=== PATIENT | male | born 1970 | race African-American/Black ===

== ENCOUNTER 2019-02-21 06:46 | Emergency (ER) | payer SELFPAY ==
[2019-02-21] MEDS ORDERED: DIPHENHYDRAMINE HCL 50 MG/ML VIAL IV ONE (10:35)
[2019-02-21] MEDS ORDERED: DEXAMETHASONE SOD PHOS INJ 10 MG/1 ML VIAL IV ONE (10:35)
[2019-02-21] MEDS ORDERED: PROCHLORPERAZINE EDISYLATE INJ 10 MG/2 ML VIAL IV ONE ×3 (10:35→13:20)
[2019-02-21] MEDS ORDERED: NORMAL SALINE 1000 ML 1,000 ML IV ONE (10:35)
--- NOTE | 2019-02-21 10:38 | ER Document Report ---
ED Medical Screen (RME) - General Chief Complaint: Headache >24 hrs old Stated Complaint: MIGRANE/BLOOD PRESSURE ISSUES Time Seen by Provider: 02/21/19 10:32 Mode of Arrival: Ambulatory Information source: Patient Notes: Patient presents complaining of headache pain that started gradually 2 weeks ago. Patient states headache pain worsened yesterday which prompted his visit today. Patient reports light sensitivity and phonophobia. Patient denies any fever nausea or vomiting. Patient denies any head injury. I have greeted and performed a rapid initial assessment of this patient. A co mprehensive ED assessment and evaluation of the patient, analysis of test results and completion of the medical decision making process will be conducted by additional ED providers. TRAVEL OUTSIDE OF THE [place] IN LAST 30 DAYS: No - Related Data Allergies/Adverse Reactions: No Known Allergies Allergy (Unverified 02/21/19 08:49) Physical Exam - Vital signs Vitals: Temp Pulse Resp BP Pulse Ox 98.6 F 73 16 136/79 H 97 02/21/19 07:01 02/21/19 07:01 02/21/19 07:01 02/21/19 07:01 02/21/19 07:01 - General Notes: No meningismus - Neurological Cognition: Normal [place] Coma Scale Eye Opening: Spontaneous [place] Coma Scale Verbal: Oriented Nehal Coma Scale Motor: Obeys Commands [place] Coma Scale Total: 15 Course - Vital Signs Vital signs: Temp Pulse Resp BP Pulse Ox 98.5 F 66 14 116/75 98 02/21/19 10:22 02/21/19 10:22 02/21/19 10:22 02/21/19 10:22 02/21/19 10:22
--- NOTE | 2019-02-21 11:08 | RADIOLOGY REPORT (SQ) ---
EXAM DESCRIPTION: CT HEAD WITHOUT COMPLETED DATE/TIME: 02/21/2019 10:53 am REASON FOR STUDY: PURVIS COMPARISON: None. TECHNIQUE: Axial images acquired through the brain without intravenous contrast. Images reviewed wi th bone, brain and subdural windows. Additional sagittal and coronal reconstructions were generated. Images stored on PACS. All CT scanners at this facility use dose modulation, iterative reconstruction, and/or weight based d osing when appropriate to reduce radiation dose to as low as reasonably achievable (ALARA). [facility]: Dose Right [facility]: CareDose [facility]: Dose Right [facility]: Teradose 4D [facility]: [email or web address] RADIATION DOSE: CT Rad equipment meets quality standard of care and radiation dose reduction techniq ues were employed. CTDIvol: 53.2 mGy. DLP: 1044 mGy-cm. mGy. LIMITATIONS: None. FINDINGS: VENTRICLES: Normal size and contour. CEREBRUM: No masses. No hemorrhage. No midline shift. No evidence for acute infarction. Normal gra y/white matter differentiation. No areas of low density in the white matter. CEREBELLUM: No masses. No hemorrhage. No alteration of density. No evidence for acute infarction. EXTRAAXIAL SPACES: No fluid collections. No masses. ORBITS AND GLOBE: No intra- or extraconal masses. Normal contour of globe without masses. CALVARIUM: No fracture. PARANASAL SINUSES: No fluid or mucosal thickening. SOFT TISSUES: No mass or hematoma. OTHER: No other significant finding. IMPRESSION: No acute intracranial pathology. EVIDENCE OF ACUTE STROKE: NO. COMMENT: Quality ID # [id number]: Final reports with documentation of one or more dose reduction techniques (e.g., Automated exposure control, adjustment of the mA and/or kV according to patient size, use of iterative reconstruction technique) TECHNICAL DOCUMENTATION: JOB ID: [id number] [employer]- All Rights Reserved Reading location - IP/workstation name: [email or web address]
--- NOTE | 2019-02-21 11:39 | ER Document Report ---
ED General - General Chief Complaint: Headache >24 hrs old Stated Complaint: MIGRANE/BLOOD PRESSURE ISSUES Time Seen by Provider: 02/21/19 10:32 Mode of Arrival: Ambulatory TRAVEL OUTSIDE OF THE [place] IN LAST 30 DAYS: No - Related Data Allergies/Adverse Reactions: No Known Allergies Allergy (Unverified 02/21/19 08:49) Past Medical History - General Information source: Patient - Social History Smoking Status: Current Every Day Smoker Family History: Reviewed & Not Pertinent Patient has suicidal ideation: No Patient has homicidal ideation: No Physical Exam - Vital signs Vitals: Temp Pulse Resp BP Pulse Ox 98.6 F 73 16 136/79 H 97 02/21/19 07:01 02/21/19 07:01 02/21/19 07:01 02/21/19 07:01 02/21/19 07:01 - Notes Notes: Patient presents emergency department complaint of a headache this been going on for the past 2 weeks. The headache is located in both eyes. Associated with little bit of blurry vision a bit of photophobia. He says the headache came on gradually got progressively worse. Is not a thunderclap headache not the worst headache he has ever had no relief with [id number] medications. He has no fevers nausea or vomiting with this numbness or weakness in extremities. Said he had frequent headaches as a kid room does not remember headaches like in the past There is medical history is unremarkable. Socially she does smoke but does not drink. Family history is noncontributory PHYSICIAN EXAM -vital signs are noted triage note and note from triage reviewed GENERAL: Well-appearing, well-nourished and in _mild distress from pain HEAD: Atraumatic, normocephalic. EYES: Pupils equal round and reactive to light, extraocular movements intact, there is no nystagmus there is no real photophobia lights in the room are off sclera anicteric, conjunctiva are normal. ENT: nares patent, oropharynx clear without exudates. Moist mucous membranes. Face is nontender nontender NECK: supple without lymphadenopathy no meningeal signs LUNGS: Breath sounds clear to auscultation bilaterally and equal. No wheezes rales or rhonchi. HEART: Regular rate and rhythm without murmurs ABDOMEN: Soft, nontender, normoactive bowel sounds. EXTREMITIES: No deformity, no edema. NEUROLOGICAL: Alert and oriented x4. Cranial nerves he has symmetrical smile facies and shoulder shrug. His motor strength is 5/5 bilaterally in the upper and lower extremities. Toes downgoing. Sensation is intact to light touch is a negative Romberg and normal gait PSYCH: Normal mood, normal affect. SKIN: Warm, Dry, normal turgor, no rashes or lesions noted. BACK-nontender in the midline Differential diagnosis includes migraine headache headache Course - Re-evaluation Re-evalutation: 02/21/19 16:31 ED patient remained stable he was given medications from triage. On repeat exam he still having a moderate headache and was given additional dose of medications. On repeat exam she has a headache is almost completely resolved. He is feeling better and looks better. And was able to tolerate the lights on in the room Medical decision making patient presents with headache for 2 weeks. She had a normal neurological exam. CT is negative presentation is not consistent with subarachnoid hemorrhage or meningitis he is feeling better can be discharged home. Dictation was done using voice recognition software. There may be some grammatical errors which are unintentional I discussed results of laboratory findings and diagnostic test with patient/family. The treatment plan was explained and I reviewed the discharge instructions with them. Questions were answered. The patient/family verbalizes understanding - Vital Signs Vital signs: Temp Pulse Resp BP Pulse Ox 98.5 F 66 14 110/74 97 02/21/19 10:22 02/21/19 10:22 02/21/19 10:22 02/21/19 16:01 02/21/19 16:01 - Diagnostic Test Radiology reviewed: Reports reviewed Discharge - Discharge Clinical Impression: Headache Qualifiers: Headache type: unspecified Headache chronicity pattern: unspecified pattern Condition: Good Disposition: HOME, SELF-CARE Additional Instructions: Headache The physician does not feel that the headache you are experiencing has a serious underlying cause. Most headaches are due to emotional stress, with resultant muscle tension (tension headache). Occasionally, headaches are secondary to changes in the blood vessels of the scalp (vascular headache and migraine headache). Sometimes, a headache is the first symptom of another developing illness, such as a viral infection. You have no evidence of stroke, bleeding, meningitis, or other serious cause of your headache. The treatment of headaches varies with the severity and cause of the pain. Not all headaches need pain shots. In fact, there is evidence that using narcotics for headaches may make them worse in the long run. The physician will determine the therapy that's in your best interest. If you develop a fever, if the headache is different from any you've previously experienced, or if the headache progressively worsens, then call your physician at once or go to the emergency room. Return if you get worse or unable to follow-up with your family doctor Please review the discharge instructions. They will tell you about your illness/injury, the normal course and symptoms you need to return to the emergency department for Follow-up in the clinic in 2 to 3 days if not better Take 1 Benadryl with the Compazine Prescriptions: Prochlorperazine Maleate [Compazine 10 mg Tablet] 10 mg PO ASDIR PRN #6 tablet PRN Reason:
[2019-02-21] MEDS ORDERED: KETOROLAC TROMETHAMINE INJ/PF 30 MG/1 ML SDV IV ONE (13:21)
[2019-02-21 16:54] VITALS: BP 122/79
== END 2019-02-21 16:52 | disposition home or self-care (01) ==
LOC: ER 06:46
DX: R51 Headache (principal); F17.200 Nicotine dependence, unspecified, uncomplicated; H53.8 Other visual disturbances
CPT/HCPCS: 96376; 99283; 96361; 96374; 96375; 70450; J1200; J1885; J0780; J7030; J1100

== ENCOUNTER 2020-02-23 21:07 | Observation (INO) | payer SELFPAY ==
--- NOTE | 2020-02-23 22:05 | ER Document Report ---
ED Medical Screen (RME) - General Chief Complaint: Chest Pain Stated Complaint: CHEST PAIN Time Seen by Provider: 02/23/20 21:59 TRAVEL OUTSIDE OF THE [place] IN LAST 30 DAYS: No - HPI Notes: Patient is a 49-year-old male with history of 3 MIs who presents with right- sided chest pain that began 3 days ago. Patient states the pain has been constant and radiates to his right arm. He denies any recent injury or fall. Patient is not currently on any blood thinners. - Related Data Allergies/Adverse Reactions: No Known Allergies Allergy (Unverified 02/21/19 08:49) Physical Exam - Vital signs Vitals: Temp Pulse Resp BP Pulse Ox 97.7 F 67 18 119/74 93 02/23/20 21:26 02/23/20 21:26 02/23/20 21:26 02/23/20 21:26 02/23/20 21:26 - General In distress: Mild - Respiratory Respiratory status: No respiratory distress Chest status: Tender Breath sounds: Normal - Cardiovascular Rhythm: Regular Heart sounds: Normal auscultation Course - Re-evaluation Re-evalutation: I have greeted and performed a rapid initial assessment of this patient. A comprehensive ED assessment and evaluation of the patient, analysis of test results and completion of medical decision making process will be conducted by an additional ED providers. - Vital Signs Vital signs: Temp Pulse Resp BP Pulse Ox 97.7 F 67 18 119/74 93 02/23/20 21:26 02/23/20 21:26 02/23/20 21:26 02/23/20 21:26 02/23/20 21:26
--- NOTE | 2020-02-23 22:16 | EKG REPORT ---
SEVERITY:- NORMAL ECG - SINUS RHYTHM ST ELEV, PROBABLE NORMAL EARLY REPOL PATTERN : Confirmed by: Amarilis Smalls MD 23-Feb-2020 22:16:28
[2020-02-23 22:48] LABS: ABSOLUTE BASOPHILS # (AUTO) 0.1 10^3/uL (0.0-0.2); ABSOLUTE LYMPHOCYTES (AUTO) 3.1 10^3/uL (0.5-4.7); ABSOLUTE MONOCYTES (AUTO) 0.5 10^3/uL (0.1-1.4); TOTAL CELLS COUNTED % (AUTO) 100 %
[2020-02-23 22:54] LABS: ABSOLUTE EOSINOPHILS # (AUTO) 0.3 10^3/uL (0.0-0.6); ABSOLUTE NEUT (AUTO) 2.7 10^3/uL (1.7-8.2); BASOPHILS % (AUTO) 1.5 % (0-2); EOSINOPHILS % (AUTO) 3.9 % (0-6); HEMATOCRIT 47.7 % (37.9-51.0); LYMPHOCYTES % (AUTO) 46.5 % (13-45); MEAN CORPUSCULAR HEMOGLOBIN 30.3 pg (27.0-33.4); MEAN CORPUSCULAR HGB CONC 33.6 g/dL (32.0-36.0); MEAN CORPUSCULAR VOLUME 90 fl (80-97); MONOCYTES % (AUTO) 7.4 % (3-13); PLATELET COUNT 316 10^3/uL (150-450); RED BLOOD COUNT 5.28 10^6/uL (4.35-5.55); RED CELL DISTRIBUTION WIDTH 14.6 % (11.5-14.0); SEGMENTED NEUTROPHILS % (AUTO) 40.7 % (42-78); WHITE BLOOD COUNT 6.6 10^3/uL (4.0-10.5)
[2020-02-23 23:06] LABS: ALBUMIN 4.6 g/dL (3.5-5.0); ALKALINE PHOSPHATASE 64 U/L (38-126); ANION GAP 14 (5-19); ASPARTATE AMINO TRANSFERASE 27 U/L (17-59); BILIRUBIN,DIRECT 0.2 mg/dL (0.0-0.4); BILIRUBIN,TOTAL 0.6 mg/dL (0.2-1.3); BLOOD UREA NITROGEN 13 mg/dL (7-20); CARBON DIOXIDE 22 mmol/L (22-30); CHLORIDE 105 mmol/L (98-107); GLUCOSE 103 mg/dL (75-110); POTASSIUM 4.2 mmol/L (3.6-5.0); TOTAL PROTEIN 7.6 g/dL (6.3-8.2)
--- NOTE | 2020-02-23 23:14 | RADIOLOGY REPORT (SQ) ---
EXAM DESCRIPTION: CHEST SINGLE VIEW 02/23/2020 10:03 PM [employer] CLINICAL HISTORY: 49 years Male, chest pain; ; COMPARISON: None. FINDINGS: Single view is obtained. Cardiac and mediastinal contours are normal. Lungs are clear. No pleural effusion or pneumothorax. A small osteochondroma may emanate from the dorsal aspect of the distal right clavicle. IMPRESSION: No acute disease.
[2020-02-24] MEDS ORDERED: ASPIRIN 81 MG TABLET, CHEWABLE ONE (03:49)
[2020-02-24] MEDS ORDERED: MORPHINE SULFATE 10 MG/ML INJ ONE (03:49)
--- NOTE | 2020-02-24 05:08 | ER Document Report ---
ED General - General Chief Complaint: Chest Wall Pain Stated Complaint: CHEST PAIN Time Seen by Provider: 02/23/20 21:59 Notes: 49-year-old male with CAD with several prior MIs presents with approximately 2 days of constant retrosternal and right-sided chest pain radiating to right arm similar to prior anginal pain without alleviating factors associated with feeling more tired than usual for the past 2 days. Patient denies recent cardiac work-up, PE history, pleuritic chest pain, exertional chest pain, lower extremity edema, PE risk factors, cough, fever, trauma, back pain, abdominal pain, drug use, myalgia TRAVEL OUTSIDE OF THE [place] IN LAST 30 DAYS: No - Related Data Allergies/Adverse Reactions: No Known Allergies Allergy (Unverified 02/21/19 08:49) Past Medical History - General Information source: Patient, Relative - Social History Smoking Status: Unknown if Ever Smoked Family History: Reviewed & Not Pertinent Review of Systems - Review of Systems Notes: REVIEW OF SYSTEMS: CONSTITUTIONAL : Denies fever, chills, or sweats. EENT: Denies recent cold/sinus symptoms, denies throat pain CARDIOVASCULAR: + chest pain, -ADE RESPIRATORY: Denies cough, denies shortness of breath. GASTROINTESTINAL: Denies abdominal pain, nausea/vomiting. GENITOURINARY: Denies difficulty urinating, painful urination. MUSCULOSKELETAL: Denies neck pain, back pain. SKIN: Denies rash or skin lesions. HEMATOLOGIC : Denies easy bruising or bleeding. LYMPHATIC: Denies swollen, enlarged glands. NEUROLOGICAL: Denies headache, denies change in gait. PSYCHIATRIC: Denies anxiety or stress or depression. Physical Exam - Vital signs Vitals: Temp Pulse Resp BP Pulse Ox 97.7 F 67 18 119/74 93 02/23/20 21:26 02/23/20 21:26 02/23/20 21:26 02/23/20 21:26 02/23/20 21:26 - Notes Notes: PHYSICAL EXAMINATION: GENERAL: Well-appearing, well-nourished and in no acute distress. HEAD: Atraumatic, normocephalic. EYES: Pupils equal round and appropriate constriction, sclera anicteric, conjunctiva are normal. ENT: nares patent, moist mucous membranes. NECK: Normal range of motion, supple without lymphadenopathy, no JVD LUNGS/CHEST: Normal respiratory rate and effort, speaking in full sentences, no accessory muscle use, normal chest excursion, mild discomfort on palpation of chest diffusely on right side with normal inspection HEART: Regular rate, no JVD, no lower extremity edema ABDOMEN: Soft, nontender, no guarding, no masses EXTREMITIES: Normal range of motion, no pitting or edema. No cyanosis. NEUROLOGICAL: Awake, alert, conversing appropriately, moves all extremities spontaneously. PSYCH: Normal mood, normal affect. SKIN: Warm, Dry, normal turgor, no rashes or lesions noted. Course - Re-evaluation Re-evalutation: 02/24/20 05:05 Patient with chest pain without associated symptoms with concerning CAD history similar to prior anginal pain, but also reproducible and has been constant for 2 days with 2 negative troponins. Patient low risk for PE and D-dimer negative which is sufficient to rule out PE in this patient with low pretest probability. EKG with concave and diffuse mild ST abnormalities without any reciprocal changes which are stable on 2 repeat EKGs likely early repole possibly representing pericarditis, unlikely acute TX as patient has had no dynamic changes and 2 - troponins. Given patient's heart score and ACS risk patient appropriate for observation for cardiology eval and possible stress. Patient's pain improved with morphine. Patient has been stable during ED observation.. Discussed patient with Dr. Huddleston who has accepted patient to observation. Given that patient also presents with generalized fatigue ordered Covid test. Presentation not consistent with aortic dissection, will defer to hospitalist to reevaluate need for definitive testing for this diagnosis if clinical picture should change, but not indicated at this time. The patient was evaluated during the global COVID-19 pandemic and that diagnosis was suspected/considered upon their initial presentation. Their evaluation, treatment and testing was consistent with current guidelines for patients who present with complaints or symptoms that may be related to COVID-19. - Vital Signs Vital signs: Temp Pulse Resp BP Pulse Ox 97.7 F 73 18 125/65 99 02/23/20 21:26 02/23/20 23:33 02/23/20 21:26 02/23/20 23:33 02/23/20 23:33 - Laboratory Results Result Diagrams: 02/23/20 22:39 02/23/20 22:39 Laboratory Results Interpreted: 02/23/20 22:39 RDW 14.6 H Lymph % (Auto) 46.5 H Seg Neutrophils % 40.7 L Critical Laboratory Results Reviewed: No Critical Results - Radiology Results Critical Radiology Results Reviewed: No Critical Results - EKG Interpretation by Me Additional EKG results interpreted by me: 02/24/20 05:09 Initial EKG: Sinus rhythm, no significant ST depressions, concave ST elevations in precordial leads likely early repol, no significant T wave abnormalities Second EKG: Sinus rhythm, no significant ST depressions, concave ST elevations in precordial leads likely early repol, no significant T wave abnormalities, no significant changes from prior EKG Third EKG: Sinus rhythm, no significant ST depressions, concave ST elevations in precordial leads likely early repol, no significant T wave abnormalities, no significant changes from prior EKG Discharge - Discharge Clinical Impression: Chest pain Qualifiers: Chest pain type: unspecified Qualified Code(s): R07.9 - Chest pain, unspecified Disposition: ADMITTED OBSERVATION Admitting Provider: [facility] Admitted: Telemetry
[2020-02-24] MEDS ORDERED: ACETAMINOPHEN 325 MG TABLET PO PRN (05:25)
--- NOTE | 2020-02-24 06:54 | PDOC H&P ---
History of Present Illness Admission Date/PCP: 02/24/20 05:19 Patient complains of: Chest pain History of Present Illness: SAYRA LOYOLA is a 49 year old male The patient presented with chest pain lasting for about 3 days now. He has some questionable history of heart disease. 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 Further questioning him he said he did not have cardiac catheterization and he does not have any cardiac stent. He said he has an enlarged heart. It is somewhat unclear what happened to him. 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 Sunday, on 19 February he developed right-sided chest pain after working. Moving around and lifting his arm made the pain worse. He had some intermittent left-sided chest pain as well. He became very weak. The chest pain was persistent. He had no shortness of breath. Eventually he came to the emergency department last night. He was given intravenous morphine for pain. When I arrived to see him he was sleeping. He woke up easily. He was complaining about right sided pressure type chest pain. Pain is radiating to the right shoulder. Moving the right shoulder or the right arm did not make any difference for the pain. The pain was persistent but after morphine it was a lot better. The patient did not appear to be in any distress. Past Medical History Cardiac Medical History: Reports: Other - He is stating he had 3 heart attacks but I am not quite sure. Pulmonary Medical History: Reports: None EENT Medical History: Reports: None Neurological Medical History: Reports: None Endocrine Medical History: Reports: None Renal/ Medical History: Reports: None GI Medical History: Reports: None Skin Medical History: Reports: None Hematology: Reports: None Infectious Medical History: Reports: None Past Surgical History Past Surgical History: Reports: None Social History Information Source: Patient Lives with: Family Smoking Status: Unknown if Ever Smoked Family History Family History: Reviewed & Not Pertinent Parental Family History Reviewed: Yes Children Family History Reviewed: Yes Sibling(s) Family History Reviewed.: Yes Medication/Allergy Home Medications: Prochlorperazine Maleate [Compazine 10 mg Tablet] 10 mg PO ASDIR PRN #6 tablet 02/21/19 Allergies/Adverse Reactions: No Known Allergies Allergy (Unverified 02/21/19 08:49) Review of Systems Constitutional: PRESENT: weakness Eyes: ABSENT: visual disturbances Ears: ABSENT: hearing changes Cardiovascular: PRESENT: chest pain Respiratory: ABSENT: cough, hemoptysis Gastrointestinal: ABSENT: abdominal pain, constipation, diarrhea, hematemesis, hematochezia, nausea, vomiting Integumentary: ABSENT: rash, wounds Neurological: ABSENT: abnormal gait, abnormal speech, confusion, dizziness, focal weakness, syncope Psychiatric: ABSENT: anxiety, depression, homidical ideation, suicidal ideation Hematologic/Lymphatic: ABSENT: easy bleeding, easy bruising Physical Exam Vital Signs: Temp Pulse Resp BP Pulse Ox 98.4 F 73 12 120/74 98 02/24/20 06:00 02/23/20 23:33 02/24/20 06:00 02/24/20 06:00 02/24/20 06:00 Intake & Output 02/22/20 02/23/20 02/24/20 06:59 06:59 06:59 Weight 81.647 kg General appearance: PRESENT: no acute distress Head exam: PRESENT: atraumatic, normocephalic Eye exam: PRESENT: conjunctiva pink, EOMI, PERRLA. ABSENT: scleral icterus Ear exam: PRESENT: normal external ear exam Neck exam: ABSENT: carotid bruit, JVD, lymphadenopathy, thyromegaly Respiratory exam: PRESENT: clear to auscultation jackeline. ABSENT: rales, rhonchi, wheezes Cardiovascular exam: PRESENT: RRR. ABSENT: diastolic murmur, rubs, systolic murmur Pulses: PRESENT: normal dorsalis pedis pul Vascular exam: PRESENT: normal capillary refill GI/Abdominal exam: PRESENT: normal bowel sounds, soft. ABSENT: distended, guarding, mass, organolmegaly, rebound, tenderness Extremities exam: PRESENT: full ROM. ABSENT: calf tenderness, clubbing, pedal edema Musculoskeletal exam: PRESENT: ambulatory Neurological exam: PRESENT: alert, awake, oriented to person, oriented to place, oriented to time, oriented to situation, CN II-XII grossly intact. ABSENT: motor sensory deficit Skin exam: ABSENT: rash Results Laboratory Results: 02/23/20 22:39 02/23/20 22:39 02/23/20 02/23/20 22:39 22:39 WBC 6.6 RBC 5.28 Hgb 16.0 Hct 47.7 MCV 90 MCH 30.3 MCHC 33.6 RDW 14.6 H Plt Count 316 Seg Neutrophils % 40.7 L Sodium 141.3 Potassium 4.2 Chloride 105 Carbon Dioxide 22 Anion Gap 14 BUN 13 Creatinine 0.84 Est GFR ( Amer) > 60 Glucose 103 Calcium 10.0 Magnesium 2.2 Total Bilirubin 0.6 AST 27 Alkaline Phosphatase 64 Total Protein 7.6 Albumin 4.6 02/23/20 02/24/20 22:39 02:25 Troponin I < 0.012 < 0.012 EKG Comments: Sinus rhythm, left ventricular hypertrophy, ST elevation V3 to V6 consistent with early repolarization. Impressions: Chest X-Ray 02/23/20 22:03 IMPRESSION: No acute disease. Assessment and Plan - Diagnosis (1) Chest pain Qualifiers: Chest pain type: unspecified Qualified Code(s): R07.9 - Chest pain, unspecified Is this a current diagnosis for this admission?: Yes Plan: The chest pain is mainly right-sided, he may had some left-sided component. The chest pain is persistent now for about 3 days. He has some questionable cardiac history. The way he describes the events myocardial infarction in the past seems to be less likely. He has left ventricular hypertrophy on EKG. Some form of cardiomyopathy cannot be excluded. He does not have any sign of ongoing cardiac ischemia. The patient is going to be placed in observation. engine monitor. Repeat cardiac enzymes. Echocardiogram. If there is any suspicion for heart disease cardiology consultation will be requested. The patient is ambulatory, expected hospital stay is short, DVT prophylaxis is not indicated. I started him on 81 mg aspirin. - Plan Summary Summary: The patient was placed in observation because of chest pain. Has some questionable cardiac history. He has abnormal EKG but no sign of ongoing cardiac ischemia. - Time Time Spent with patient: 25-34 minutes Medications reviewed and adjusted accordingly: Yes Anticipated Discharge Disposition: Home, Self Care Anticipated Discharge Timeframe: within 24 hours
[2020-02-24 07:01] LABS: CHOLESTEROL 174.91 mg/dL (0-200); TRIGLYCERIDES 112 mg/dL (<150)
[2020-02-24 07:12] LABS: DIRECT LDL 79 mg/dL (<100)
[2020-02-24] MEDS ORDERED: ASPIRIN 81 MG TABLET, CHEWABLE PO SCH (10:00)
[2020-02-24 13:41] VITALS: BP 116/73
--- NOTE | 2020-02-24 14:16 | EKG REPORT ---
SEVERITY:- ABNORMAL ECG - SINUS RHYTHM LEFT VENTRICULAR HYPERTROPHY ST ELEV, PROBABLE NORMAL EARLY REPOL PATTERN : Confirmed by: Amarilis Smalls MD 24-Feb-2020 14:15:33
[2020-02-24] MEDS ORDERED: DIAZEPAM 2 MG TABLET PO ONE (14:30)
[2020-02-24] MEDS ORDERED: KETOROLAC TROMETHAMINE INJ/PF 30 MG/1 ML SDV IV ONE (14:30)
--- NOTE | 2020-02-24 17:33 | XCELERA REPORT ---
[address] [address] Transthoracic Echocardiogram Report Name: SAYRA LOYOLA Age: 49 yrs Gender: Male : 1970 Patient Status: Inpatient Patient Location: [address] [place], [place] [id number] Study Date: 02/24/2020 11:25 AM History: Chest pain Height: 73 in Weight: 180 lb BSA: 2.1 m2 Procedure: A complete two-dimensional transthoracic echocardiogram was performed (2D, M-mode, spectral and color flow Doppler). The study was technically adequate with some images being suboptimal in quality. Reason For Study: chest pain Previous Evaluation: No previous studies were available. History: Chest pain. Ordering Physician: ARACELI ALEXANDRA Performed By: Mandy Ralph Interpretation Summary Left ventricular systolic function is normal. The Ejection Fraction estimate is 55-60% The right ventricle is normal in size and function. There is a trace amount of mitral regurgitation There is no aortic valve stenosis There is a trace amount of tricuspid regurgitation There is no pericardial effusion. MMode/2D Measurements & Calculations RVDd: 2.3 cm LVIDd: 5.0 cm FS: 30.3 % Ao root diam: 3.1 cm IVSd: 0.87 cm LVIDs: 3.5 cm EDV(Teich): 119.7 ml Ao root area: 7.5 cm2 LVPWd: 0.89 cm ESV(Teich): 51.1 ml EF(Teich): 57.3 % Doppler Measurements & Calculations MV E max maria isabel: MV dec slope: Ao V2 max: LV V1 max P.9 cm/sec 242.6 cm/sec2 120.4 cm/sec 5.0 mmHg MV A max maria isabel: MV dec time: 0.24 sec Ao max P.8 mmHgLV V1 max: 41.2 cm/sec 111.4 cm/sec MV E/A: 1.4 PA V2 max: PI end-d maria isabel: TR max maria isabel: 89.9 cm/sec 85.3 cm/sec 212.5 cm/sec PA max P.2 mmHg TR max P.1 mmHg Left Ventricle The left ventricle is normal in size. There is normal left ventricular wall thickness. Left ventricular systolic function is normal. The Ejection Fraction estimate is 55-60%. Doppler measurements suggest normal left ventricular diastolic function. The left ventricular wall motion is normal. Right Ventricle The right ventricle is normal in size and function. Atria The right atrium is normal. The left atrial size is normal. The interatrial septum is intact with no evidence for an atrial septal defect. There is no Doppler evidence for an interatrial shunt. Mitral Valve The mitral valve is grossly normal. There is no evidence of mitral valve prolapse. There is no mitral valve stenosis. There is a trace amount of mitral regurgitation. Aortic Valve The aortic valve is normal in structure and function. The aortic valve is trileaflet. The aortic valve opens well. There is no aortic valve stenosis. No aortic regurgitation is present. Tricuspid Valve The tricuspid valve is normal in structure and function. There is no tricuspid stenosis. There is a trace amount of tricuspid regurgitation. Doppler findings do not suggest pulmonary hypertension. Great Vessels The aortic root is normal size. The inferior vena cava appeared normal and decreased > 50% with respiration (RAP 5-10 mmHg). Effusions There is no pericardial effusion. : ARACELI ALEXANDRA Anil
--- NOTE | 2020-02-24 19:42 | PDOC DISCHARGE SUMMARY ---
Impression - Admit/DC Date/PCP Admission Date/Primary Care Provider: 02/24/20 05:19 Discharge Date: 02/24/20 - Discharge Diagnosis (1) Right shoulder pain Is this a current diagnosis for this admission?: Yes (2) Trapezius muscle spasm Is this a current diagnosis for this admission?: Yes (3) Chest pain Is this a current diagnosis for this admission?: Yes - Additional Information Resuscitation Status: Full Code Discharge Diet: Cardiac Discharge Activity: Activity As Tolerated, Balance Activity w/Rest, Slowly Increase Activity Referrals: [facility] [Outside] - 02/24/20 2:19 pm (OFFICE WILL CONTACT THE PATIENT WITH FOLLOW UP APPT) Prescriptions: Cyclobenzaprine HCl [Flexeril 10 mg Tablet] 10 mg PO TIDP PRN #15 tab PRN Reason: Muscle Spasms Tramadol HCl [Ultram 50 mg Tablet] 50 mg PO Q6HP PRN #12 tablet PRN Reason: Home Medications: Acetaminophen [Tylenol 325 mg Tablet] 650 mg PO Q4HP PRN tablet 02/24/20 Aspirin [Aspirin 81 mg Chewable Tablet] 81 mg PO DAILY tab.chew 02/24/20 Cyclobenzaprine HCl [Flexeril 10 mg Tablet] 10 mg PO TIDP PRN #15 tab 02/24/20 Tramadol HCl [Ultram 50 mg Tablet] 50 mg PO Q6HP PRN #12 tablet 02/24/20 History of Present Illiness History of Present Illness: Per H&P by Dr. Huddleston: SAYRA LOYOLA is a 49 year old male The patient presented with chest pain lasting for about 3 days now. He has some questionable history of heart disease. 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 Further questioning him he said he did not have cardiac catheterization and he does not have any cardiac stent. He said he has an enlarged heart. It is somewhat unclear what happened to him. He does not have a ski top trimmer and he does not have a primary care provider. 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 Sunday, on 19 February he developed right-sided chest pain after working. Moving around and lifting his arm made the pain worse. He had some intermittent left-sided chest pain as well. He became very weak. The chest pain was persistent. He had no shortness of breath. Eventually he came to the emergency department last night. He was given intravenous morphine for pain. When I arrived to see him he was sleeping. He woke up easily. He was complaining about right sided pressure type chest pain. Pain is radiating to the right shoulder. Moving the right shoulder or the right arm did not make any difference for the pain. The pain was persistent but after morphine it was a lot better. The patient did not appear to be in any distress. Hospital Course Hospital Course: The patient was admitted to the medical floor on continuous cardiac telemetry. He remained in normal sinus rhythm. EKG showed normal sinus rhythm without ST segment changes or other chest x-ray was benign. Echocardiogram revealed LVEF 55 to 60% with out diastolic dysfunction or other abnormal findings. Serial troponins were negative x3. D-dimer negative. Lipid panel and A1c normal. Upon further assessment, the patient's discomfort was reproducible through palpation and movement of his right upper extremity. He was noted to have paraspinal, trapezius, and sternocleidomastoid muscle spasms and tenderness; especially with rotation to the right and right lateral flexion. Patient was provided IV Toradol and p.o. Valium with improvement in his discomfort. He was discharged home with prescriptions for tramadol and Flexeril. In addition, he was advised to use heat, gentle stretching, and [id number] NSAIDs as needed for his discomfort. He was further instructed to return to the emergency department, as needed, for concerning symptoms. Physical Exam Vital Signs: Temp Pulse Resp BP Pulse Ox 97.7 F 58 L 17 116/73 100 02/24/20 13:17 02/24/20 14:00 02/24/20 13:17 02/24/20 12:33 02/24/20 13:17 Intake & Output 02/23/20 02/24/20 02/25/20 06:59 06:59 06:59 Intake Total 480 Balance 480 Weight 81.647 kg 75.6 kg General appearance: PRESENT: no acute distress, well-developed, well-nourished Head exam: PRESENT: atraumatic, normocephalic Eye exam: PRESENT: conjunctiva pink, EOMI, PERRLA. ABSENT: scleral icterus Mouth exam: PRESENT: moist, tongue midline Neck exam: PRESENT: tenderness - Right sternocleidomastoid and trapezius muscles with spasms noted.. ABSENT: carotid bruit, full ROM - Secondary to pain, JVD, lymphadenopathy, thyromegaly Respiratory exam: PRESENT: clear to auscultation jackeline, symmetrical, unlabored, other - Room air. ABSENT: rales, rhonchi, wheezes Cardiovascular exam: PRESENT: RRR, +S1, +S2. ABSENT: diastolic murmur, rubs, systolic murmur Pulses: PRESENT: normal dorsalis pedis pul Vascular exam: PRESENT: normal capillary refill Extremities exam: PRESENT: full ROM. ABSENT: calf tenderness, clubbing, pedal edema Musculoskeletal exam: PRESENT: ambulatory, other - Right-sided cervical and thoracic paraspinal muscle spasm and tenderness noted Neurological exam: PRESENT: alert, awake, oriented to person, oriented to place, oriented to time, oriented to situation, CN II-XII grossly intact. ABSENT: motor sensory deficit Psychiatric exam: PRESENT: appropriate affect, normal mood. ABSENT: homicidal ideation, suicidal ideation Skin exam: PRESENT: dry, intact, warm. ABSENT: cyanosis, rash Results Laboratory Results: WBC 6.6 10^3/uL (4.0-10.5) 02/23/20 22:39 RBC 5.28 10^6/uL (4.35-5.55) 02/23/20 22:39 Hgb 16.0 g/dL (13.5-17.0) 02/23/20 22:39 Hct 47.7 % (37.9-51.0) 02/23/20 22:39 MCV 90 fl (80-97) 02/23/20 22:39 MCH 30.3 pg (27.0-33.4) 02/23/20 22:39 MCHC 33.6 g/dL (32.0-36.0) 02/23/20 22:39 RDW 14.6 % (11.5-14.0) H 02/23/20 22:39 Plt Count 316 10^3/uL (150-450) 02/23/20 22:39 Lymph % (Auto) 46.5 % (13-45) H 02/23/20 22:39 [place] % (Auto) 7.4 % (3-13) 02/23/20 22:39 Eos % (Auto) 3.9 % (0-6) 02/23/20 22:39 Baso % (Auto) 1.5 % (0-2) 02/23/20 22:39 Absolute Neuts (auto) 2.7 10^3/uL (1.7-8.2) 02/23/20 22:39 Absolute Lymphs (auto) 3.1 10^3/uL (0.5-4.7) 02/23/20 22:39 Absolute Monos (auto) 0.5 10^3/uL (0.1-1.4) 02/23/20 22:39 Absolute Eos (auto) 0.3 10^3/uL (0.0-0.6) 02/23/20 22:39 Absolute Basos (auto) 0.1 10^3/uL (0.0-0.2) 02/23/20 22:39 Seg Neutrophils % 40.7 % (42-78) L 02/23/20 22:39 D-Dimer < 0.27 ug/mL (0.00-0.50) 02/23/20 22:39 Sodium 141.3 mmol/L (137-145) 02/23/20 22:39 Potassium 4.2 mmol/L (3.6-5.0) 02/23/20 22:39 Chloride 105 mmol/L (98-107) 02/23/20 22:39 Carbon Dioxide 22 mmol/L (22-30) 02/23/20 22:39 Anion Gap 14 (5-19) 02/23/20 22:39 BUN 13 mg/dL (7-20) 02/23/20 22:39 Creatinine 0.84 mg/dL (0.52-1.25) 02/23/20 22:39 Est GFR ( Amer) > 60 (>60) 02/23/20 22:39 Est GFR (MDRD) Non-Af > 60 (>60) 02/23/20 22:39 Glucose 103 mg/dL (75-110) 02/23/20 22:39 Hemoglobin A1c % 4.9 % (4.7-6.0) 02/24/20 06:26 Calcium 10.0 mg/dL (8.4-10.2) 02/23/20 22:39 Magnesium 2.2 mg/dL (1.6-2.3) 02/23/20 22:39 Total Bilirubin 0.6 mg/dL (0.2-1.3) 02/23/20 22:39 Direct Bilirubin 0.2 mg/dL (0.0-0.4) 02/23/20 22:39 Neonat Total Bilirubin Not Reportable 02/23/20 22:39 Neonat Direct Bilirubin Not Reportable 02/23/20 22:39 Neonat Indirect Bili Not Reportable 02/23/20 22:39 AST 27 U/L (17-59) 02/23/20 22:39 ALT 18 U/L (<50) 02/23/20 22:39 Alkaline Phosphatase 64 U/L (38-126) 02/23/20 22:39 Troponin I < 0.012 ng/mL 02/24/20 12:18 Total Protein 7.6 g/dL (6.3-8.2) 02/23/20 22:39 Albumin 4.6 g/dL (3.5-5.0) 02/23/20 22:39 Triglycerides 112 mg/dL (<150) 02/24/20 06:26 Cholesterol 174.91 mg/dL (0-200) 02/24/20 06:26 LDL Cholesterol Direct 79 mg/dL (<100) 02/24/20 06:26 VLDL Cholesterol 22.0 mg/dL (10-31) 02/24/20 06:26 HDL Cholesterol 75 mg/dL (>40) 02/24/20 06:26 TSH 2.48 uIU/mL (0.47-4.68) 02/24/20 06:26 02/23/20 02/24/20 02/24/20 22:39 02:25 12:18 Troponin I < 0.012 < 0.012 < 0.012 Impressions: Chest X-Ray 02/23/20 22:03 IMPRESSION: No acute disease. Plan Plan of Treatment: Discharged home, in stable condition. He is advised follow-up with his primary care provider within 1 week. He is provided a referral to Dr. Deras for follow-up, as needed, for chest discomfort. He is instructed to rest, start gentle stretching of his neck, upper back, and shoulder. Utilize Flexeril as prescribed, OTC NSAIDs per package instructions, and heat for discomfort. Return to the emergency department, as needed, for concerning symptoms. Time Spent: Greater than 30 Minutes Stroke Is this a Stroke Patient?: No Acute Heart Failure Is this a Heart Failure Patient?: No
[2020-02-25] MEDS ORDERED: INFLUENZA QUAD (6MOS+) 2020-21 VAC 0.5 ML SYR IM ONE (08:00)
== END 2020-02-24 15:54 | disposition home or self-care (01) ==
LOC: ER 21:07 → EH 02-24 05:19 → 4N 02-24 07:19
PROVIDERS: ADMIT Internal Medicine; ATTEND Registered Nurse
DX: R07.9 Chest pain, unspecified (principal); M25.511 Pain in right shoulder; M62.830 Muscle spasm of back; I25.2 Old myocardial infarction; R53.1 Weakness; M62.838 Other muscle spasm; R94.31 Abnormal electrocardiogram [ECG] [EKG]; Z20.828 Contact with and (suspected) exposure to other viral communicable diseases; R53.83 Other fatigue
CPT/HCPCS: 93005 ×2; 99285; 96374; 36415 ×2; 83735; 84443; 85025; 80053; 84484 ×2; 83036; 85379; 80061; 93306; 71045; 93010 ×2; G0378 ×2; J3490 ×2; J1885